=== PATIENT | female | born 1985 | race Caucasian/White ===

== ENCOUNTER 2020-11-08 09:22 | Day surgery (SDC) | payer OTHER ==
[2020-11-08] MEDS ORDERED: Depo-Medrol 40 MG/ML IM ONE (09:23)
[2020-11-08] MEDS ORDERED: LIDOCAINE HCL 2% 100 MG/5 ML IJ ONE (09:23)
[2020-11-08] MEDS ORDERED: Versed 2 MG/2 ML Injection ONE (10:05)
[2020-11-08] MEDS ORDERED: DIPRIVAN 200 MG/20 ML IV ONE ×2 (11:23→11:34)
--- NOTE | 2020-11-08 12:36 | XRAY ---
Indication: Bilateral L4-S1 MBB. Intraoperative fluoroscopy provided for 20 seconds. Single digital spot image submitted for interpretation demonstrates posterior needle tips projecting over the expected left and right L4-S1 nerve roots. Correlate with intraoperative findings/report.
--- NOTE | 2020-11-08 12:42 | XRAY ---
20 seconds fluoroscopy time in surgery for bilateral L4-S1 MBB.
[2020-11-08] MEDS ORDERED: Lactated Ringers 1,000 ML IV ONE (15:53)
== END 2020-11-08 11:55 | disposition home or self-care (01) ==
LOC: SDC-PAIN 09:22
PROVIDERS: ATTEND Psychiatry & Neurology Pain Medicine
DX: M47.816 Spondylosis without myelopathy or radiculopathy, lumbar region (principal); Z79.899 Other long term (current) drug therapy
CPT/HCPCS: 64493; 64494; 72020; 77002; 84703; J1030; J2250; J2704